=== PATIENT | male | born 1995 | race Caucasian/White ===

== ENCOUNTER 2019-07-21 01:01 | Emergency (ER) | payer MEDICAID ==
[~2019-07-21] VITALS: Ht 177.8 cm; Wt 122.7 kg
[2019-07-21 01:04] VITALS: BP 163/100
[2019-07-21] MEDS ORDERED: ONDA4TAB6 PO (01:39)
[2019-07-21] MEDS ORDERED: AMOX500C2 PO (01:39)
[2019-07-21] MEDS ORDERED: METH4TAB81 PO (01:39)
[2019-07-21] MEDS ORDERED: METR500T PO (01:39)
[2019-07-21] MEDS ORDERED: HYDR-3965 PO (01:39)
[2019-07-21] MEDS ORDERED: ibuprofen tablet 400 MG TABLET PO ONE (01:55)
[2019-07-21] MEDS ORDERED: acetaminophen 325mg tablet PO ONE (01:55)
== END 2019-07-21 02:40 | disposition home or self-care (01) ==
LOC: ER 01:01
DX: K04.7 Periapical abscess without sinus (principal); K02.9 Dental caries, unspecified; Z79.899 Other long term (current) drug therapy
CPT/HCPCS: 99283

== ENCOUNTER 2020-05-08 09:17 | Emergency (ER) | payer MEDICAID ==
[~2020-05-08] VITALS: Ht 180.3 cm; Wt 122.7 kg
[~2020-05-08 09:17] MED LIST: METH4TAB81 PO; ONDA4TAB6 PO
[2020-05-08 09:21] VITALS: BP 166/127
[2020-05-08 09:41] LABS: BASOPHILS # (AUTO) 0.1 X10'3 (0-0.2); BASOPHILS % (AUTO) 1.1 % (0-1); EOSINOPHILS # (AUTO) 0.2 X10'3 (0-0.9); EOSINOPHILS % (AUTO) 1.9 % (0-6); HEMATOCRIT 46.4 % (42.0-52.0); HEMOGLOBIN 15.7 g/dl (14.0-17.9); LYMPHOCYTES # (AUTO) 1.5 X10'3 (1.1-4.8); LYMPHOCYTES % (AUTO) 15.2 % (21-51); MEAN CORPUSCULAR HEMOGLOBIN 28.6 PG (27.0-31.0); MEAN CORPUSCULAR HGB CONC 33.9 g/dL (33.0-36.5); MEAN CORPUSCULAR VOLUME 84.3 FL (78-98); MEAN PLATELET VOLUME 7.3 FL (7.4-10.4); MONOCYTES # (AUTO) 0.7 X10'3 (0-0.9); MONOCYTES % (AUTO) 6.9 % (2-12); NEUTROPHILS # (AUTO) 7.2 X10'3 (1.8-7.7); NEUTROPHILS % (AUTO) 74.9 % (42-75); PLATELET COUNT 351 X10'3 (140-440); WHITE BLOOD COUNT 9.6 X10'3 (4.5-11.0)
[2020-05-08 09:45] LABS: CLARITY,URINE CLEAR (Clear); COLOR,URINE STRAW (Yellow); GLUCOSE, URINE NEGATIVE (Neg); KETONES,URINE NEGATIVE (Neg); LEUKOCYTE ESTERASE ,URINE NEGATIVE (Neg); NITRITES, URINE NEGATIVE (Neg); OCCULT BLOOD,URINE NEGATIVE (Neg); PH,URINE 8.5 (4.8-8.0); PROTEIN,URINE NEGATIVE (Neg); UROBILINOGEN,URINE 0.2 E.U/dL (0.2-1.0)
[2020-05-08 09:50] LABS: UA COLLECTION TYPE CLN CATCH MIDSTREAM
[2020-05-08 09:54] LABS: ALANINE AMINOTRANSFERASE 75 U/L (12-78); ALBUMIN/GLOBULIN RATIO 0.9 (1.1-1.5); ALKALINE PHOSPHATASE 65 IU/L (46-116); ANION GAP 7 (8-16); ASPARTATE AMINO TRANSFERASE 36 U/L (10-37); BILIRUBIN,TOTAL 0.4 MG/DL (0.1-1.0); BLOOD UREA NITROGEN 9 MG/DL (7-18); CALCIUM 9.8 MG/DL (8.5-10.1); CHLORIDE 102 MMOL/L (99-107); CREATININE 1.12 MG/DL (0.60-1.10); GLUCOSE 129 MG/DL (70-104); POTASSIUM 3.8 MMOL/L (3.5-5.1); SODIUM 136 MMOL/L (135-145); TOTAL CARBON DIOXIDE 27.1 MMOL/L (24-32); TOTAL PROTEIN 8.4 G/DL (6.4-8.2); eGFR 79 ML/MIN
[2020-05-08] MEDS ORDERED: ketorolac trometh inj. 60 MG/2 ML VIAL IM ONE (10:35)
[2020-05-08] MEDS ORDERED: NAPR-56 PO (10:37)
[2020-05-08] MEDS ORDERED: VAL5T PO (10:37)
== END 2020-05-08 10:59 | disposition home or self-care (01) ==
LOC: ER 09:17
DX: M54.5 Low back pain (principal); M62.838 Other muscle spasm; R35.0 Frequency of micturition; R10.32 Left lower quadrant pain; R11.0 Nausea; F12.90 Cannabis use, unspecified, uncomplicated; Z79.899 Other long term (current) drug therapy
CPT/HCPCS: 36415; 80053; 81003; 85025; 96372; 99283; J1885

== ENCOUNTER 2021-07-10 20:09 | Emergency (ER) | payer MEDICAID ==
[~2021-07-10] VITALS: Ht 180.3 cm; Wt 125.7 kg
[2021-07-10] MEDS ORDERED: HYDROcodone/acetaminophen 5mg/325mg tablet PO ONE ×2 (20:25→20:45)
--- NOTE | 2021-07-10 20:30 | NUR ---
Patient moved to room 17, no main ED beds open. Patient given [facility] 5. nuclear control operator advised.
[2021-07-10] MEDS ORDERED: diazepam 5mg tablet PO ONE (20:45)
[2021-07-10] MEDS ORDERED: naproxen 500mg tablet PO ONE (20:45)
[2021-07-10 22:22] VITALS: BP 127/75
== END 2021-07-10 22:54 | disposition home or self-care (01) ==
LOC: ER 20:10
DX: T23.351A Burn of third degree of right palm, initial encounter (principal); Z20.822 Contact with and (suspected) exposure to COVID-19; T23.231A Burn of second degree of multiple right fingers (nail), not including thumb, initial encounter; T23.352A Burn of third degree of left palm, initial encounter; W86.1XXA Exposure to industrial wiring, appliances and electrical machinery, initial encounter; Y93.89 Activity, other specified; Y92.89 Other specified places as the place of occurrence of the external cause; Y99.8 Other external cause status
CPT/HCPCS: 87635; 99283; C9803